=== PATIENT | male | born 1985 | race Caucasian/White ===

== ENCOUNTER 2021-10-24 22:28 | Emergency (ER) | payer SELFPAY ==
[~2021-10-24] VITALS: Ht 185.4 cm; Wt 90.7 kg
[~2021-10-24 22:28] MED LIST: HYDROCODONE BIT1 T11 PO; KEFLEX500 MG PO; NKHM; PEPCID20 MG PO
== END 2021-10-24 23:55 | disposition home or self-care (01) ==
LOC: ED 22:28
DX: S61.411A Laceration without foreign body of right hand, initial encounter (principal); W01.0XXA Fall on same level from slipping, tripping and stumbling without subsequent striking against object, initial encounter; Y93.89 Activity, other specified; Y92.89 Other specified places as the place of occurrence of the external cause; Y99.8 Other external cause status

== ENCOUNTER 2022-02-28 13:00 | Inpatient (IN) | payer SELFPAY ==
[~2022-02-28] VITALS: Ht 182.8 cm; Wt 93.0 kg
[2022-02-28 13:04] VITALS: BP 118/86
[2022-02-28 13:20] LABS: BASO % 0.3 % (0.0-1.0); EOS % 0.2 % (1.0-4.0); HEMATOCRIT 41.4 % (42.0-52.0); LYMPH # 2.2 10*3/uL (1.3-4.4); LYMPH % 23.6 % (27.0-41.0); MEAN CORPUSCULAR HGB 30.8 pg (27.0-31.0); MEAN CORPUSCULAR HGB CONC 33.8 g/dl (33.0-37.0); MONO # 0.5 10*3/uL (0.1-1.0); MONO % 5.1 % (3.0-9.0); NEUT # 6.6 10*3/uL (2.3-7.9); NEUT % 70.4 % (47.0-73.0); PLATELET COUNT AUTOMATED 179 10*3/uL (130-400); RED BLOOD COUNT 4.55 10*6/uL (4.50-5.90); RED CELL DISTRI WIDTH 12.4 % (0-14.5); WHITE BLOOD COUNT 9.3 10*3/uL (4.8-10.8)
[2022-02-28 13:31] LABS: ACT PARTIAL THROMBO TIME 28.9 SECONDS (20.0-32.1); INTERNATIONAL NORM RATIO 1.1 (2.0-3.5)
[2022-02-28 13:40] LABS: ALKALINE PHOSPHATASE 73 U/L (45-117); BUN 11 mg/dl (7-24); CHLORIDE 100 mmol/L (98-107); CREATININE 1.01 mg/dL (0.70-1.30); POTASSIUM 3.7 mmol/L (3.5-5.1); SGOT/AST 34 IU/L (3-35); SGPT/ALT 30 U/L (12-78); SODIUM 135 mmol/L (136-145); TOTAL PROTEIN 7.4 gm/dL (6.4-8.2)
[2022-02-28 14:26] VITALS: BP 120/88
[2022-02-28] MEDS ORDERED: ASPIRIN ADULT L81 M2 PO (16:45)
== END 2022-02-28 18:44 | disposition short-term general hospital (02) | DRG 280 ==
LOC: ED 13:00 → EDHOLD 14:35
PROVIDERS: Nurse Practitioner Family; ADMIT Internal Medicine; ATTEND Internal Medicine
DX: I21.4 Non-ST elevation (NSTEMI) myocardial infarction (principal); I40.0 Infective myocarditis; E87.1 Hypo-osmolality and hyponatremia; R73.9 Hyperglycemia, unspecified; E80.6 Other disorders of bilirubin metabolism; Z20.822 Contact with and (suspected) exposure to COVID-19

== ENCOUNTER 2022-03-16 12:44 | Emergency (ER) | payer MEDICAID ==
[~2022-03-16] VITALS: Ht 185.4 cm; Wt 90.7 kg
[~2022-03-16 12:44] MED LIST changes: +ASPIRIN ADULT L81 M2 PO
[2022-03-16] MEDS ORDERED: VIBRAMYCIN100 MG PO (13:39)
== END 2022-03-16 17:05 | disposition home or self-care (01) ==
LOC: ED 12:44
DX: S93.402A Sprain of unspecified ligament of left ankle, initial encounter (principal); W01.0XXA Fall on same level from slipping, tripping and stumbling without subsequent striking against object, initial encounter; Y93.89 Activity, other specified; Y92.89 Other specified places as the place of occurrence of the external cause; Y99.8 Other external cause status

== ENCOUNTER 2023-02-18 12:12 | Emergency (ER) | payer MEDICAID ==
[~2023-02-18] VITALS: Ht 185.4 cm; Wt 95.3 kg
[~2023-02-18 12:12] MED LIST changes: +VIBRAMYCIN100 MG PO
[2023-02-18 13:07] LABS: BASO % 0.5 % (0.0-1.0); EOS # 0.1 10*3/uL (0.0-0.4); EOS % 1.1 % (1.0-4.0); LYMPH # 2.1 10*3/uL (1.3-4.4); LYMPH % 33.5 % (27.0-41.0); MEAN CELL VOLUME 92.5 fl (80.0-94.0); MEAN CORPUSCULAR HGB CONC 34.7 g/dl (33.0-37.0); MEAN PLATELET VOLUME 9.6 fl (9.6-12.3); MONO # 0.4 10*3/uL (0.1-1.0); MONO % 6.1 % (3.0-9.0); NEUT # 3.6 10*3/uL (2.3-7.9); NEUT % 58.5 % (47.0-73.0); PLATELET COUNT AUTOMATED 232 10*3/uL (130-400); RED BLOOD COUNT 4.65 10*6/uL (4.50-5.90); RED CELL DISTRI WIDTH 12.6 % (0-14.5); WHITE BLOOD COUNT 6.2 10*3/uL (4.8-10.8)
[2023-02-18 13:29] LABS: ALKALINE PHOSPHATASE 52 U/L (46-116); BUN 6 mg/dl (9-23); CHLORIDE 105 mmol/L (98-107); POTASSIUM 4.1 mmol/L (3.4-5.1); SGPT/ALT 21 U/L (10-49); TOTAL PROTEIN 7.4 gm/dL (6.0-8.0)
[2023-02-18] MEDS ORDERED: CYCLOBENZAPRINE10 MG PO (16:35)
[2023-02-18] MEDS ORDERED: ZOLOFT25 MG PO (16:35)
[2023-02-18] MEDS ORDERED: HYDROXYZINE PAM25 M1 PO (16:35)
[2023-02-18] MEDS ORDERED: VIBRAMYCIN100 MG PO (16:35)
== END 2023-02-18 16:54 | disposition home or self-care (01) ==
LOC: ED 12:12
PROVIDERS: Nurse Practitioner Family
DX: R20.2 Paresthesia of skin (principal); M47.812 Spondylosis without myelopathy or radiculopathy, cervical region; R51.9 Headache, unspecified; A69.20 Lyme disease, unspecified; Z98.890 Other specified postprocedural states

== ENCOUNTER → 2023-03-15 | Outpatient (CLI) | payer MEDICAID ==
[~2023-03-15] MED LIST changes: +CYCLOBENZAPRINE10 MG PO; +HYDROXYZINE PAM25 M1 PO; +ZOLOFT25 MG PO
== END | disposition home or self-care (01) ==
LOC: RESCLI 02:57
PROVIDERS: ATTEND Student in an Organized Health Care Education/Training Program
DX: A69.20 Lyme disease, unspecified (principal); M19.90 Unspecified osteoarthritis, unspecified site; F41.1 Generalized anxiety disorder; R21 Rash and other nonspecific skin eruption; R20.0 Anesthesia of skin; M25.512 Pain in left shoulder; R94.31 Abnormal electrocardiogram [ECG] [EKG]

== ENCOUNTER 2023-04-09 07:10 | Emergency (ER) | payer MEDICAID ==
[~2023-04-09] VITALS: Ht 185.4 cm; Wt 95.3 kg
[2023-04-09] MEDS ORDERED: MIXED AMPHETAMI30 MG PO (07:24)
[2023-04-09] MEDS ORDERED: PREDNISONE50 MG PO (11:32)
[2023-04-09] MEDS ORDERED: CYCLOBENZAPRINE10 MG PO (11:32)
[2023-04-09] MEDS ORDERED: HYDROCODONE-AC1 EAC1 PO (11:32)
== END 2023-04-09 11:39 | disposition home or self-care (01) ==
LOC: ED 07:10
DX: M54.12 Radiculopathy, cervical region (principal); Z98.890 Other specified postprocedural states

== ENCOUNTER 2023-04-26 14:49 | Emergency (ER) | payer OTHER, MEDICAID ==
[~2023-04-26] VITALS: Ht 185.4 cm; Wt 95.3 kg
[~2023-04-26 14:49] MED LIST changes: +HYDROCODONE-AC1 EAC1 PO; +MIXED AMPHETAMI30 MG PO; +PREDNISONE50 MG PO
== END 2023-04-26 15:50 | disposition home or self-care (01) ==
LOC: ED 14:49
DX: S01.81XA Laceration without foreign body of other part of head, initial encounter (principal); F90.9 Attention-deficit hyperactivity disorder, unspecified type; Z98.890 Other specified postprocedural states; W20.8XXA Other cause of strike by thrown, projected or falling object, initial encounter; Y93.89 Activity, other specified; Y92.89 Other specified places as the place of occurrence of the external cause; Y99.0 Civilian activity done for income or pay

== ENCOUNTER 2023-04-26 21:12 | Emergency (ER) | payer MEDICAID ==
[~2023-04-26] VITALS: Wt 95.3 kg
== END 2023-04-26 22:45 | disposition home or self-care (01) ==
LOC: ED 21:12
DX: S01.21XD Laceration without foreign body of nose, subsequent encounter (principal); X58.XXXD Exposure to other specified factors, subsequent encounter; Z98.890 Other specified postprocedural states

== ENCOUNTER 2024-06-14 14:01 | Emergency (ER) | payer OTHER ==
[~2024-06-14] VITALS: Ht 185.4 cm; Wt 95.3 kg
[2024-06-14] MEDS ORDERED: ADDERALL XR 3030 MG PO (14:12)
[2024-06-14] MEDS ORDERED: EFFEXOR XR75 M1 PO (14:12)
[2024-06-14] MEDS ORDERED: ACETAMINOPHEN 325 MG TAB PO ONE (14:20)
== END 2024-06-14 17:19 | disposition home or self-care (01) ==
LOC: ED 14:01
DX: S01.81XA Laceration without foreign body of other part of head, initial encounter (principal); Z98.890 Other specified postprocedural states; W22.8XXA Striking against or struck by other objects, initial encounter; Y93.89 Activity, other specified; Y92.89 Other specified places as the place of occurrence of the external cause; Y99.0 Civilian activity done for income or pay

== ENCOUNTER 2024-11-05 17:58 | Emergency (ER) | payer SELFPAY ==
[~2024-11-05] VITALS: Ht 185.4 cm; Wt 95.3 kg
[~2024-11-05 17:58] MED LIST changes: +ADDERALL XR 3030 MG PO; +EFFEXOR XR75 M1 PO
[2024-11-05] MEDS ORDERED: LISSAMINE GREEN 1.5 MG STRIP OP ONE (18:30)
[2024-11-05] MEDS ORDERED: Tetracaine Hydrochloride 0.5% 4 ML BOT OPH ONE (18:30)
[2024-11-05] MEDS ORDERED: Tdap Vaccine 0.5 ML SYR (Adult Vaccine) IM ONE (19:10)
[2024-11-05] MEDS ORDERED: KETOROLAC TROMETH. 0.5% OPTH SOL OPH ONE (19:10)
== END 2024-11-05 19:22 | disposition home or self-care (01) ==
LOC: ED 17:58
DX: T15.81XA Foreign body in other and multiple parts of external eye, right eye, initial encounter (principal); F17.200 Nicotine dependence, unspecified, uncomplicated; Z98.890 Other specified postprocedural states; W44.8XXA Other foreign body entering into or through a natural orifice, initial encounter; Y93.89 Activity, other specified; Y92.89 Other specified places as the place of occurrence of the external cause; Y99.0 Civilian activity done for income or pay

== ENCOUNTER 2024-12-27 09:22 | Emergency (ER) | payer SELFPAY ==
[~2024-12-27] VITALS: Ht 185.4 cm; Wt 95.3 kg
[2024-12-27] MEDS ORDERED: EPINEPHrine/Lidocaine Hydroc 20 ML VIAL SC ONE (09:40)
[2024-12-27] MEDS ORDERED: VIBRAMYCIN100 MG PO (09:42)
[2024-12-27] MEDS ORDERED: Bacitracin Zinc 14 GM TUBE T ONE (09:55)
== END 2024-12-27 10:21 | disposition home or self-care (01) ==
LOC: ED 09:22
DX: S70.361A Insect bite (nonvenomous), right thigh, initial encounter (principal); Z79.899 Other long term (current) drug therapy; W57.XXXA Bitten or stung by nonvenomous insect and other nonvenomous arthropods, initial encounter; Y93.89 Activity, other specified; Y92.89 Other specified places as the place of occurrence of the external cause; Y99.8 Other external cause status

== ENCOUNTER 2025-03-12 10:07 | Emergency (ER) | payer SELFPAY ==
[~2025-03-12] VITALS: Ht 185.4 cm; Wt 95.3 kg
[2025-03-12] MEDS ORDERED: diphenhydrAMINE hydrochloride 50 MG/ML VIAL IM ONE (10:25)
[2025-03-12] MEDS ORDERED: methylPREDNISolone sod succ 125 MG VIAL IM ONE (10:25)
[2025-03-12] MEDS ORDERED: PREDNISONE20 M1 PO (10:26)
[2025-03-12] MEDS ORDERED: CEPHALEXIN500 M1 PO (10:26)
[2025-03-12] MEDS ORDERED: Water, Sterile 10 ML VIAL ONE (10:51)
== END 2025-03-12 10:40 | disposition home or self-care (01) ==
LOC: ED 10:07
DX: L23.7 Allergic contact dermatitis due to plants, except food (principal); L03.115 Cellulitis of right lower limb; L03.116 Cellulitis of left lower limb; Z79.899 Other long term (current) drug therapy; Z87.891 Personal history of nicotine dependence